=== PATIENT | male | born 1960 | race Caucasian/White ===

== ENCOUNTER 2016-09-30 12:14 | Emergency (ER) | payer OTHER ==
--- NOTE | ~2016-09-30 | CR72 ---
[facility] A Service of [facility] RADIOLOGY TEXT RESULTS PATIENT: YESENIA COYNE LOCATION: [facility] : 58 UNIT #: [id number] AGE: [address]: Dylon Estes MD SEX: M ORDER DR: [id number] [facility] [address] [place], [place] [address] [id number] E MR#: [id number] Acc #: [id number] NAME: YESENIA COYNE : 1960 SEX: M STUDY DATE/TIME: 09/30/2016 11:23 UNIT: [facility] ROOM: STUDY DESCRIPTION: CR Chest Single View Portable Attending Physician: Dylon Estes M.D. Ordering Physician: Dylon Estes M.D. Primary Care Physician: Primary Care Physician No MEDICAL IMAGING REPORT This report is preliminary unless electronic signature is present EXAM Portable chest HISTORY Shortness breath onset today. Comparison from 12/08/2011 TECHNIQUE Single AP view chest was obtained. FINDINGS The lungs are hyperinflated consistent with emphysema. Heart size is normal. Healed rib fractures are seen on the left. There are new since the previous examination. No focal lung infiltrates are seen. Vascular markings are normal and no pleural fluid is seen. IMPRESSION No active disease. Hyperinflated lungs suggesting emphysema. No focal infiltrates are noted. Dictated by... Deric Ferrara M.D. THIS IS AN ELECTRONICALLY VERIFIED REPORT Deric Ferrara M.D. at 09/30/2016 4:29 PM RLF/radha TD: 09/30/2016 12:25 JOB #: [id number] MEDICAL IMAGING REPORT Page 1 of 1 COPY
--- NOTE | ~2016-09-30 | EKG ---
PATIENT: EYSENIA COYNE UNIT #: [id number] Ventricular Rate: 97 BPM Atrial Rate: 97 BPM P-R Interval: 132 ms QRS Duration: 126 ms Q-T Interval: 368 ms QTC Calculation(Bezet): 467 ms P [place]: 81 degrees Calculated R [place]: 124 degrees Calculated T [place]: 59 degrees Diagnosis Line: Normal sinus rhythm Diagnosis Line: Right bundle branch block Diagnosis Line: Left posterior fascicular block Diagnosis Line: Bifascicular block Diagnosis Line: Abnormal ECG Diagnosis Line: No previous ECGs available Diagnosis Line: Confirmed by ZANDER RAMOS MD ([id number]) on 10/01/2016 Diagnosis Line: 4:50:12 AM INTERPRETING MD: RACHEL CHAMORRO
[2016-09-30 11:48] LABS: POC - CKMB 2.3 ng/mL (0.0-7.9); POC - TROPONIN <0.05 ng/mL (<=0.05)
[2016-09-30 11:50] LABS: BASOPHIL# 0.1 X10e3 (0-0.3); BASOPHIL% 0.6 % (0-2.5); EOSINOPHIL% 0.1 % (0.0-7.0); HEMOGLOBIN 15.6 gm/dL (13.0-16.0); LYMPHOCYTE# 2.2 X10e3 (1.0-3.5); MEAN CELL VOLUME 98.3 FL (83-96); MEAN CORPUSCULAR HEMOGLOBIN 32.6 PG (28-34); MEAN CORPUSCULAR HGB CONC 33.1 g/dL (30-36); MEAN PLATELET VOLUME 6.9 FL (6.5-11.5); MONOCYTE# 1.7 X10e3 (0-1.0); MONOCYTE% 9.8 % (3.0-12.0); NEUTROPHIL# 13.2 X10e3 (1.5-7.1); NEUTROPHIL% 76.5 % (40-75); PLATELET COUNT 379 X10e3 (140-420); RED BLOOD COUNT 4.78 X10e (3.90-5.60); RED CELL DISTRIBUTION WIDTH 13.4 % (11.0-15.5); WHITE BLOOD COUNT 17.2 X10e3 (4.0-10.5)
[2016-09-30 11:51] LABS: DIFF IND YES
[2016-09-30 11:56] LABS: INR 0.9; PROTHROMBIN TIME (PATIENT) 9.7 SECONDS (9.6-11.5)
[2016-09-30 12:12] LABS: ALBUMIN SERUM 3.9 g/dL (3.5-5.0); BILIRUBIN, DIRECT 0.2 mg/dL (0.0-0.2); BILIRUBIN,TOTAL 1.2 mg/dL (0.2-2.0); CALCIUM SERUM 8.9 mg/dL (8.4-10.2); CREATININE SERUM 0.9 mg/dL (0.6-1.4); GLOM FILT RATE Estimated 95.1 mL/min (>60); POTASSIUM 4.2 mmol/L (3.5-5.1); PROTEIN TOTAL SERUM 7.6 g/dL (6.0-8.3)
[2016-09-30 12:14] LABS: PLATELET ESTIMATE NORMAL (NORMAL); RBC NORMAL YES
[~2016-09-30 12:14] MED LIST: PERCOCET5/325 PO
== END 2016-09-30 13:29 | disposition home or self-care (01) ==
LOC: CED 12:14
PROVIDERS: Emergency Medicine
DX: J44.9 Chronic obstructive pulmonary disease, unspecified (principal); J18.9 Pneumonia, unspecified organism; F17.210 Nicotine dependence, cigarettes, uncomplicated
CPT/HCPCS: 36415; 71010; 80048; 80076; 82553; 83605; 83880; 84484; 85025; 85610; 87040; 93005; 94640; 96374; 99284; J2930